=== PATIENT | male | born 1970 | race Caucasian/White ===

== ENCOUNTER 2021-05-27 16:02 | Emergency (ER) | payer OTHER ==
[~2021-05-27] VITALS: Ht 172.7 cm; Wt 83.9 kg
--- NOTE | ~2021-05-27 | EMS ---
[address] [address] EMS Patient Care Report Name: BONY CROWE Room #: DEP KERRY Jorgensen#: [id number] Admission: 05/27/21 Attend Phys: Discharge: 05/27/21 Date of : 72 Report #: [id number] THIS REPORT FOR: //name// Report Transmitted: 05/28/2021 13:01 EMS Care Summary [place], [place]/[facility] Incident [id number] @ 05/27/2021 15:08 Incident Location [address] [place], [place] [id number] Patient BONY CROWE Male, 51 Years 1970 Patient Address [address] [address] Patient History Seizures, Patient Allergies No known allergies, Patient Medications Unknown, Chief Complaint seizure Disposition Transported No Lights/[place] Dis[place] Reason Convulsions/Seizure Transported To [facility] Narrative 51 y/o male having a seizure Upon arrival the pt was just getting up from lying on the floor. The pt is [address] [address] EMS Patient Care Report Name: BONY CROWE [id number] Admission: 05/27/21 Attend Phys: Discharge: 05/27/21 Date of : 72 Report #: [id number] awake, obviously confused and not orientated. The pt was able to stand up and sit on our cot with verbal and some physical guidance. The pt has a patent airway, breathing is normal, and has a strong fast reg radial pulse. The pt sat on the cot, was assisted to a position of comfort, secured to the cot, and loaded into the ambulance. VS were obtained, ECG is ST, a 20 g lock was placed in LAC, and O2 was administered 2lpm via NC. D-84. The pt initial GCS was 14. Upon administration of O2 and time the pt regained full awareness. The pt improved to a GCS of 15. He denies head, neck or back pain. Pt doesn't remember his seizure. He states his last seizure was Mar 2021. The pt was transported to [facility] for further evaluation. The pt was taken to a hallway bed. Report was given to the attending physician and EMS returned to service. Initial Vitals @15:26P: 110,CO: 1,SpO2: 97, @15:21P: 113,CO: 7,SpO2: 98,FL Suspected: false @15:20P: 112,R: 14,BP: 148/75,Pain: 0/10,GCS: 14,CO: 4,SpO2: 98,Revised Trauma: 12, @15:37P: 102,BP: 129/86,GCS: 15,Glucose: 84,SpO2: 95, Assessments @15:15MENTAL:Confused,Person Oriented,SKIN:HEENT:Head/Face: No Abnormalities,Neck/Airway: No Abnormalities,LUNG SOUNDS:General: No Abnormalities,ABDOMEN:General: No Abnormalities,PELVIS//GI:No Abnormalities,EXTREMITIES:Capillary Refill: Right Upper: < 2 Sec,Capillary Refill: Left Upper: < 2 Sec,Left Arm: No Abnormalities,Right Arm: No Abnormalities,Left Leg: No Abnormalities,Right Leg: No Abnormalities,PULSE:Radial: 2+ Normal,NEURO:No Abnormalities,@15:44MENTAL:Place Oriented,Event Oriented,Person Oriented,Time Oriented,SKIN:HEENT:Head/Face: No Abnormalities,Neck/Airway: No Abnormalities,LUNG SOUNDS:General: No Abnormalities,ABDOMEN:General: No Abnormalities,PELVIS//GI:No Abnormalities,EXTREMITIES:Capillary Refill: Left Upper: < 2 Sec,Capillary Refill: Right Upper: < 2 Sec,Left Arm: No Abnormalities,Right Arm: No Abnormalities,Left Leg: No Abnormalities,Right Leg: No Abnormalities,PULSE:Radial: 2+ Normal,NEURO:No Abnormalities, Impression Seizures Procedures @15:15 ALS Assessment Response: UnchangedSucceeded @15:21 3-Lead ECG Response: UnchangedSucceeded @15:20 IV Therapy - Saline Lock 10cc (20 ga) Site: Antecubital-Left Response: UnchangedSucceeded Timeline [address] [address] EMS Patient Care Report Name: BONY CROWE Room #: DEP KERRY Jorgensen#: [id number] Admission: 05/27/21 Attend Phys: Discharge: 05/27/21 Date of : 72 Report #: [id number] 15:07,Call Received 15:07,Dispatch Notified 15:08,Dispatched 15:10,En Route 15:13,On Scene 15:14,At Patient 15:15,ALS Assessment,Response: UnchangedSucceeded, 15:20,BP: 148/75 M,PULSE: 112,RR: 14 R,SPO2: 98 Ox,ETCO2: ,BG: ,PAIN: 0,GCS: 14, 15:20,IV Therapy - Saline Lock 10cc 20 ga Site: Antecubital-Left,Response: UnchangedSucceeded, 15:21,BP: / M,PULSE: 113,RR: R,SPO2: 98 Ox,ETCO2: ,BG: ,PAIN: ,GCS: , 15:21,3-Lead ECG,Response: UnchangedSucceeded, 15:26,BP: / M,PULSE: 110,RR: R,SPO2: 97 Ox,ETCO2: ,BG: ,PAIN: ,GCS: , 15:37,BP: 129/86 M,PULSE: 102,RR: R,SPO2: 95 Ox,ETCO2: ,B,PAIN: ,GCS: 15, 15:42,Depart Scene 16:03,At Destination 16:08,Call Closed Disclaimer v1.1 Copyright 2021 [employer] This EMS Care Summary contains data elements from the applicable legal record (which may be displayed differently). It is designed to provide pertinent information for the following purposes: continuity of care, clinical quality, and state data reporting. The complete legal record is available to ED staff and administrators of the receiving hospital in [employer] Patient Tracker. All data is provided "as is."
[2021-05-27 17:02] VITALS: BP 127/70
== END 2021-05-27 17:08 | disposition home or self-care (01) ==
LOC: ER 16:02
DX: G40.909 Epilepsy, unspecified, not intractable, without status epilepticus (principal)